=== PATIENT | female | born 1985 | race Caucasian/White ===

== ENCOUNTER 2024-04-18 11:12 | Emergency (ER) | payer OTHER ==
[2024-04-18 11:24] VITALS: TEMP 97.6
[2024-04-18] MEDS: SODIUM CHLORIDE 0.9% 1,000 ML IV STA (11:52)
[2024-04-18 11:58] LABS: Basophils % (A) 0 %; Eosinophils # (A) 0.1 k/uL (0-0.7); Eosinophils % (A) 2 %; HCT 35.8 % (34.0-46.0); HGB 11.7 gm/dL (11.4-16.0); Lymphocytes # (A) 1.3 k/uL (1.0-4.8); Lymphocytes % (A) 25 %; MCH 30.9 pg (25.0-35.0); MCHC 32.8 g/dL (31.0-37.0); MCV 94.4 fL (80.0-100.0); Mean Platelet Volume 7.5; Monocytes # (A) 0.2 k/uL (0-1.0); Monocytes % (A) 4 %; Neutrophils # (A) 3.5 k/uL (1.3-7.7); Neutrophils % (A) 67 %; Platelet Count 244 k/uL (150-450); RBC 3.79 m/uL (3.80-5.40); RDW 12.9 % (11.5-15.5); WBC 5.2 k/uL (3.8-10.6)
[2024-04-18 12:13] LABS: ALT 40 U/L (4-34); AST 25 U/L (14-36); African American GFR (CKD) >90 (>60 ml/min/1.73 sqM); Albumin 4.6 g/dL (3.5-5.0); Alkaline Phosphatase 54 U/L (38-126); Anion Gap 5 mmol/L; Blood Urea Nitrogen 10 mg/dL (7-17); Calcium 9.3 mg/dL (8.4-10.2); Carbon Dioxide 28 mmol/L (22-30); Chloride 102 mmol/L (98-107); Glucose 87 mg/dL (74-99); Magnesium 2.1 mg/dL (1.6-2.3); Non-African American GFR(CKD) >90 (>60 ml/min/1.73 sqM); Potassium 4.3 mmol/L (3.5-5.1); Sodium 135 mmol/L (137-145); Total Bilirubin 0.3 mg/dL (0.2-1.3); Total Protein 7.2 g/dL (6.3-8.2)
[2024-04-18 12:16] LABS: Partial Thromboplastin Time 23.2 sec (22.0-30.0); Prothrombin Time 10.6 sec (10.0-12.5)
--- NOTE | 2024-04-18 12:31 | ED ---
Chest Pain HPI - General Source: patient Mode of arrival: EMS Limitations: no limitations <Eve Mcnamara - Last Filed: 04/18/24 15:46> <Kel Nichols - Last Filed: 04/22/24 03:26> - General Chief Complaint: Chest Pain Stated Complaint: Chest Pain - History of Present Illness Initial Comments: 38-year-old female presented to the ER via EMS with a chief complaint of chest discomfort. Patient is currently at [facility] for alcohol abuse. She entered rehabilitation approximately 3 days ago. She reports her last drink was about 3 days ago as well. She admits to a history of seizures with alcohol withdrawal. She denies any other drug use. Patient states just prior to entering rehabilitation she was seen in [facility] for similar complaint. Patient states she left against medical advice for rehab. Patient reports chest discomfort is a pressure sensation. She also reports lightheadedness and mild shortness of breath. She admits to nausea, vomiting and diarrhea as well. No known cardiac history. Patient was given 325 mg aspirin and 1 sublingual nitrogen prior to arrival. Patient reports her pain a 4 out of 10 upon exam ination. No other complaints. (Eev Mcnamara) - Related Data Home Medications Medication Instructions Recorded Confirmed Acetaminophen Tab [Tylenol] 650 mg PO Q4H PRN 04/18/24 04/18/24 Calcium Phos/D3/Magnesium/Zinc 1 tab PO TID PRN 04/18/24 04/18/24 [Lruczmu-Lut-Lywk-Vitamin D3] Chlorpheniramine Maleate 4 mg PO Q4H PRN 04/18/24 04/18/24 [Chlor-Trimeton] Docusate [Colace] 100 mg PO BID PRN 04/18/24 04/18/24 Hyoscyamine Sulfate [Levsin] 0.125 mg PO QID PRN 04/18/24 04/18/24 Ibuprofen [Motrin Ib] 600 mg PO Q6H PRN 04/18/24 04/18/24 LORazepam [Ativan] 1 - 2 mg PO Q4H 04/18/24 04/18/24 Loperamide HCl [Imodium A-D] 4 mg PO QID PRN MDD 8 tablets 04/18/24 04/18/24 Multivitamins, Thera [Multivitamin 1 tab PO DAILY 04/18/24 04/18/24 (formulary)] Mylanta 30 ml PO Q4H PRN 04/18/24 04/18/24 Thiamine [Vitamin B-1] 100 mg PO DAILY 04/18/24 04/18/24 cloNIDine HCL [Catapres] 0.1 - 0.3 mg PO Q4H PRN 04/18/24 04/18/24 ondansetron HCL [Zofran] 8 mg PO Q6H PRN 04/18/24 04/18/24 Allergies Allergy/AdvReac Type Severity Reaction Status Date / Time fluoxetine [From Prozac] AdvReac DEPRESSION Verified 04/18/24 15:51 risperidone [From Risperdal] AdvReac EPS Verified 04/18/24 15:51 Review of Systems ROS Other: All systems not noted in ROS Statement are negative. <Eve Mcnamara - Last Filed: 04/18/24 15:46> ROS Other: All systems not noted in ROS Statement are negative. <Kel Nichols - Last Filed: 04/22/24 03:26> ROS Statement: Those systems with pertinent positive or pertinent negative responses have been documented in the HPI. EKG Findings - EKG Comments: EKG Findings:: EKG taken 11: 24 showing a normal sinus rhythm. No acute ST segment or T wave abnormalities. Ventricular rate 72, OH interval 125, QRS duration 83, QT/QTc 380/405. <Eve Mcnamara - Last Filed: 04/18/24 15:46> Past Medical History Past Medical History: No Reported History Past Surgical History: No Surgical Hx Reported Past Psychological History: Anxiety, Depression Smoking Status: Current every day smoker Past Alcohol Use History: Abuse <Eve Mcnamara - Last Filed: 04/18/24 15:46> General Exam Limitations: no limitations General appearance: alert, in no apparent distress Respiratory exam: Present: normal lung sounds bilaterally. Absent: respiratory distress, wheezes, rales, rhonchi, stridor Cardiovascular Exam: Present: regular rate, normal rhythm, normal heart sounds. Absent: systolic murmur, diastolic murmur, rubs, gallop, clicks Extremities exam: Present: normal inspection, full ROM, normal capillary refill. Absent: tenderness, pedal edema, joint swelling, calf tenderness Neurological exam: Present: alert, oriented X3, CN II-XII intact Skin exam: Present: warm, dry, intact, normal color. Absent: rash <Eve Mcnamara - Last Filed: 04/18/24 15:46> Course Vital Signs 04/18/24 04/18/24 04/18/24 11:20 11:41 12:23 Temperature 97.6 F Pulse Rate 63 65 65 Pulse Rate [ 65 Marble Setter Helper ] Respiratory 20 20 16 Rate Blood Pressure 100/60 100/60 100/60 O2 Sat by Pulse 99 98 98 Oximetry 04/18/24 04/18/24 04/18/24 13:00 14:00 15:00 Temperature Pulse Rate 70 60 68 Pulse Rate [ Marble Setter Helper ] Respiratory 20 16 16 Rate Blood Pressure 110/60 100/60 100/60 O2 Sat by Pulse 98 98 98 Oximetry 04/18/24 18:22 Temperature Pulse Rate 69 Pulse Rate [ Marble Setter Helper ] Respiratory 18 Rate Blood Pressure 106/64 O2 Sat by Pulse 99 Oximetry Chest Pain MDM <Eve Mcnamara - Last Filed: 04/18/24 15:46> <Kel Nichols - Last Filed: 04/22/24 03:26> - MDM Was pt. sent in by a medical professional or institution (, PA, SCAFFOLD BUILDER, urgent care, hospital, or fdc...) When possible be specific @ -Patient sent from [facility] for evaluation of chest discomfort. Did you speak to anyone other than the patient for history (EMS, parent, family, police, friend...)? What history was obtained from this source @ -No Did you review nursing and triage notes (agree or disagree)? Why? @ -I reviewed and agree with nursing and triage notes Were old charts reviewed (outside hosp., previous admission, EMS record, old EKG, old radiological studies, urgent care reports/EKG's, fdc records)? Report findings @ -No old charts were reviewed Differential Diagnosis (chest pain, altered mental status, abdominal pain women, abdominal pain men, vaginal bleeding, weakness, fever, dyspnea, syncope, headache, dizziness, GI bleed, back pain, seizure, CVA, palpatations, mental health, musculoskeletal)? @ -Differential Chest Pain: Stable Angina, Unstable Angina, STEMI, NSTEMI Aortic Dissection, Pneumothorax, Musculoskeletal, Esophageal Spasm GERD, Cholecystitis, Pancreatitis, Zoster, this is not meant to be an all-inclusive list. EKG interpreted by me (3pts min.). @ -As above X-rays interpreted by me (1pt min.). @ -[CXR interpreted me negative for acute cardiopulmonary process. CT interpreted by me (1pt min.). @ -CTA chest negative for acute evidence of pulmonary embolism or intrathoracic process. U/S interpreted by me (1pt. min.). @ -None done What testing was considered but not performed or refused? (CT, X-rays, U/S, labs)? Why? @ -None What meds were considered but not given or refused? Why? @ -None Did you discuss the management of the patient with other professionals (professionals i.e. , PA, SCAFFOLD BUILDER, lab, RT, psych nurse, medical social consultant, shoe turner, teacher, property officer, social work case manager)? Give summary @ -No Was smoking cessation discussed for >3mins.? @ -No Was critical care preformed (if so, how long)? @ -No Were there social determinants of health that impacted care today? How? (Homelessness, low income, unemployed, alcoholism, drug addiction, transportation, low edu. Level, literacy, decrease access to med. care, m[facility], rehab)? @ -Alcoholism and patient is currently residing at [facility] for rehab. Was there de-escalation of care discussed even if they declined (Discuss DNR or withdrawal of care, Hospice)? DNR status @ -No What co-morbidities impacted this encounter? (DM, HTN, Smoking, COPD, CAD, Cancer, CVA, ARF, Chemo, Hep., AIDS, mental health diagnosis, sleep apnea, morbid obesity)? @ -Alcoholism Was patient admitted / discharged? Hospital course, mention meds given and route, prescriptions, significant lab abnormalities, going to OR and other pertinent info. @ -38-year-old female presented to ER from [facility] for evaluation of chest discomfort. History and physical exam completed. Vital stable. Patient in no signs of acute distress. Exam benign. Initial troponin undetectable. D-dimer elevated at 0.62 for which CTA chest was obtained and negative for evidence of pulmonary embolism or intrathoracic process. Chest x-ray negative. EKG showing a normal sinus rhythm no acute evidence of infarct. Patient given 1 L IV fluids in the ER. Second troponin pending. Patient signed out to Kel Nichols PA-C pending second troponin and disposition. (Eve Mcnamara) Patient signed out to me by Eve Mcnamara PA-C. In short this is a 38-year-old female presenting from [facility] where she is receiving treatment for alcohol abuse. She was having chest pressure. She was signed out to me pending completion of second troponin. Second troponin is negative. Heart score is 3 which indicates that the patient is low risk. She is educated on today's findings. Eager for discharge. Instructed to follow-up with PCP and cardiology. Report back to ER with any new or worsening symptoms. Discussed return parameters and answered all questions. Patient conveyed verbal understanding and agreed to the plan. I discussed this case in detail with my attending Dr. Bhakta (Kel Nichols) Disposition <Eve Mcnamara - Last Filed: 04/18/24 15:46> Is patient prescribed a controlled substance at d/c from ED?: No Time of Disposition: 18:26 <Kel Nichols - Last Filed: 04/22/24 03:26> Clinical Impression: Chest pain Disposition: HOME SELF-CARE Condition: Fair Instructions (If sedation given, give patient instructions): Chest Pain (ED) Additional Instructions: Follow-up with PCP and cardiology. Report back to ER with any new or worsening symptoms. Referrals: [facility] [NON-STAFF] - 1-2 days [facility] [NON-STAFF] - 1-2 days None,Stated [Primary Care Provider] - 1-2 days Jesús Frey MD [STAFF PHYSICIAN] - 1-2 days Forms: Area PCPs
--- NOTE | 2024-04-18 13:12 | CT ---
EXAMINATION TYPE: CT chest angio for PE CT DLP: 171.5 mGycm, Automated exposure control for dose reduction was used. DATE OF EXAM: 04/18/2024 1:01 PM COMPARISON: Chest radiograph from same day. CLINICAL INDICATION:Female, 38 years old with history of elevated ddimer- chest pain; chest pain TECHNIQUE/CONTRAST: CTA scan of the thorax is performed with IV Contrast, patient injected with 60ml mL of Isovue 370, pu lmonary embolism protocol. MIP images are created and reviewed. FINDINGS: Pulmonary Artery: There is no evidence for a filling defect within the pulmonary vasculature to sugge st acute pulmonary embolism. The pulmonary artery is of normal size. Lungs/Pleura: Biapical pleural-parenchymal scarring. No suspicious pulmonary nodule or mass. No focal consolidation. Airway: Large airways are patent. Heart: Heart is within normal limits for size.. Vasculature: No evidence of aortic aneurysm. Mediastinum: No gross evidence of adenopathy. Musculoskeletal: No acute osseous abnormalities Soft Tissues: Dystrophic calcification identified within the left breast. Lower neck: No significant findings. Upper Abdomen: No significant findings. IMPRESSION: No evidence of pulmonary embolism or acute thoracic process. [facility], , 04/18/2024 1:09 PM
--- NOTE | 2024-04-18 13:24 | XR ---
EXAMINATION TYPE: XR chest 2V DATE OF EXAM: 04/18/2024 12:18 PM COMPARISON: None CLINICAL INDICATION: Female, 38 years old with history of Chest Pain; TECHNIQUE: XR chest 2V Frontal and lateral views of the chest. FINDINGS: Lungs/Pleura: There is no evidence of pleural effusion, focal consolidation, or pneumothorax. Pulmonary vascularity: Unremarkable. Heart/mediastinum: Cardiomediastinal silhouette is unremarkable. Musculoskeletal: No acute osseous pathology. Other findings: None IMPRESSION: No acute cardiopulmonary disease/process. [facility], , 04/18/2024 1:22 PM
[2024-04-18 13:34] LABS: Appearance,Urine Clear (Clear); Bilirubin,Urine Negative (Negative); Blood,Urine Negative (Negative); Color,Urine Colorless; Glucose,Urine (UA) Negative (Negative); Ketones,Urine Trace (Negative); Leukocyte Esterase,Urine Trace (Negative); Mucus,Urine Rare /hpf; Nitrite,Urine Negative (Negative); PH, Urine 6.5 (5.0-8.0); Protein,Urine Negative (Negative); RBC,Urine 1 /hpf (0-5); Specific Gravity,Urine 1.029 (1.001-1.035); Squamous Epithelial Cell,Urine 4 /hpf (0-4); Urobilinogen,Urine <2.0 mg/dL (<2.0); WBC,Urine 5 /hpf (0-5)
[2024-04-18 18:24] VITALS: BP 106/64; PULSE 69; RESP 18
[2024-04-18] MEDS: ACETAMINOPHEN TAB 500 MG TAB PO STA (18:40)
== END 2024-04-18 18:42 | disposition other institution (70) ==
LOC: EC 11:12
DX: R07.9 Chest pain, unspecified (principal); F17.200 Nicotine dependence, unspecified, uncomplicated; Z88.8 Allergy status to other drugs, medicaments and biological substances
CPT/HCPCS: 36415; 93005; 85379; 80053; 83735; 84484; 85025; 85610; 85730; 81001; 81025; 71046; 71275; 99285; 96360; Q9967